=== PATIENT | male | born 1985 | race Caucasian/White ===

== ENCOUNTER 2019-06-26 13:32 | Emergency (ER) | payer OTHER | END 2019-06-26 14:00 | disposition home or self-care (01) | LOC: E/R 13:32 | DX: S60.111A Contusion of right thumb with damage to nail, initial encounter (principal); W23.0XXA Caught, crushed, jammed, or pinched between moving objects, initial encounter; Y92.810 Car as the place of occurrence of the external cause | CPT/HCPCS: 73140; 99283-25 ==